=== PATIENT | male | born 1985 | race Caucasian/White ===

== ENCOUNTER 2022-10-11 02:08 | Emergency (ER) | payer OTHER ==
[~2022-10-11] VITALS: Ht 177.8 cm; Wt 83.9 kg
[2022-10-11] MEDS ORDERED: AMOXICILLIN500 M2 PO (02:59)
== END 2022-10-11 03:06 | disposition home or self-care (01) ==
LOC: ED 02:08
DX: H66.92 Otitis media, unspecified, left ear (principal); J02.9 Acute pharyngitis, unspecified

== ENCOUNTER 2024-07-18 12:24 | Emergency (ER) | payer OTHER ==
[~2024-07-18] VITALS: Ht 175.2 cm; Wt 87.1 kg
[~2024-07-18 12:24] MED LIST: AMOXICILLIN500 M2 PO
[2024-07-18] MEDS ORDERED: Acetaminophen/Oxycodone 5 MG/325 MG TABLET PO ONE (12:55)
[2024-07-18] MEDS ORDERED: PERCOCET 5-3251 EACH PO (13:42)
== END 2024-07-18 13:58 | disposition home or self-care (01) ==
LOC: ED 12:24
DX: S22.31XA Fracture of one rib, right side, initial encounter for closed fracture (principal); Z91.040 Latex allergy status; Z98.890 Other specified postprocedural states; V89.9XXA Person injured in unspecified vehicle accident, initial encounter; Y93.89 Activity, other specified; Y92.89 Other specified places as the place of occurrence of the external cause; Y99.8 Other external cause status